=== PATIENT | female | born 1960 | race Caucasian/White ===

== ENCOUNTER 2017-02-25 06:28 | Day surgery (SDC) | payer OTHER ==
[2017-02-20 08:36] VITALS: BMI 17.7
[~2017-02-25 06:28] MED LIST: DEXAMETHASONE SOD PHOSPHATE 10 MG/ML 1 ML VIAL IV ONE; HYDROmorphone 1 MG/ML 1 ML SYRINGE IVP PRN; LACTATED RINGERS 1,000 ML IV SCH; LIDOCAINE 1% 20 ML VIAL (10MG/ML) FOR IV START INTRADERMA PRN; MIDAZOLAM 2 MG/2 ML VIAL IV PRN; ONDANSETRON 4 MG/2 ML VIAL IVP ONE; Pre Op ABX Message 1 EACH MISC MISCELLANE ONE; SCOPOLAMINE 1.5MG/72HR PATCH TRANSDERM ONE
[2017-02-25] MEDS ORDERED: LIDOCAINE 1% INJ 10MG/ML (20 ML MDV) ONE (07:37)
[2017-02-25] MEDS ORDERED: PROPOFOL 10 MG/ML 20 ML VIAL IV ONE (07:37)
[2017-02-25] MEDS ORDERED: MIDAZOLAM 2 MG/2 ML VIAL ONE (07:37)
[2017-02-25] MEDS ORDERED: fentaNYL (PF) 50 MCG/ML 2 ML AMP ONE (07:37)
[2017-02-25] MEDS ORDERED: GLYCOPYRROLATE 0.2 MG/ML 2 ML VIAL ONE (07:37)
[2017-02-25] MEDS ORDERED: KETOROLAC 30 MG/ML 1 ML VIAL ONE (07:37)
--- NOTE | 2017-02-25 07:37 | P.HPOB ---
History of Present Illness H&P Date: 02/25/17 Chief Complaint: Vulvar lesions Lo is a 56-year-old female with at least 2 vulvar lesions one at 5:00 and 1 7:00. One and 5:00. 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 She is scheduled for wide local excision of same. Risks/benefits/alternatives were discussed the patient in detail and all questions are answered for her prior to proceeding to the operative room. Patient does have this history of SALVADOR 2-3 on biopsies approximately 3 years ago. However at that time she moved to [place] and had no other treatments for follow-up until she returns to [place] this year. On physical exam vital signs are stable and afebrile. Heart regular, lungs clear, extremities without pain. Pelvic exams as above. Pap smear was unremarkable. Assessment of our lesions. Plan biopsy/wide local excision of same. Past Medical History Past Medical History: Hypertension History of Any Multi-Drug Resistant Organisms: None Reported Past Surgical History: Breast Surgery, Tubal Ligation Additional Past Surgical History / Comment(s): breast biopsy, excision vulva lesion Past Anesthesia/Blood Transfusion Reactions: No Reported Reaction Smoking Status: Current every day smoker - Past Family History Mother Family Medical History: No Reported History Medications and Allergies Home Medications Medication Instructions Recorded Confirmed Type Alendronate Sodium [Fosamax] 70 mg PO WEEKLY 04/13/14 02/25/17 History Atenolol [Tenormin] 50 mg PO DAILY 04/13/14 02/25/17 History Multivit with Calcium,Iron,Min 1 each PO DAILY 04/13/14 02/20/17 History [Women's Daily Multivitamin] Ferrous Sulfate [Feosol] 325 mg PO MOFR 02/20/17 02/20/17 History Allergies Allergy/AdvReac Type Severity Reaction Status Date / Time lisinopril Allergy facial Verified 02/25/17 06:38 swelling Exam Osteopathic Statement: *. No significant issues noted on an osteopathic structural exam other than those noted in the History and Physical/Consult. - Vital Signs Vital signs: Vital Signs Temp Pulse Resp BP Pulse Ox 02/25/17 06:37 98.0 F 64 16 135/67 100 - OBG Physical Exam Breast: both: normal (no masses) Abdomen: bowel sounds normal, no diffuse tenderness, no bruit present, no guarding noted, no hepatomegaly, no splenomegaly, no mass Vulva: right: condyloma, left: pigmented lesion Vagina: normal moisture, no discharge Cervix: no lesion, no discharge Uterus: normal size, normal contour Adnexa: both: normal
[2017-02-25] MEDS ORDERED: BUPIVACAINE (PF) 0.25% 30 ML VIAL SQ ONE (07:49)
--- NOTE | 2017-02-25 08:02 | P.OP ---
Date of Procedure: 02/25/17 Preoperative Diagnosis: Vulvar lesions Postoperative Diagnosis: Same Procedure(s) Performed: Wide local excision of lesions at 7:00 and 5:00 Implants: Anesthesia: MOMO Surgeon: Mickey Stiles Estimated Blood Loss (ml): 10 Pathology: other (Lesions sent) Condition: stable Disposition: same day Indications for Procedure: Operative Findings: 2 lesions at 5 and 7:00 were identified both were excised fully Description of Procedure: Patient was placed in a dorsal following position following adequate anesthesia and prep. Initially quarter percent Marcaine without epinephrine was used to undermine the tissues and help with pain control. Using a 15 blade an elliptical incision was made around first the lesion at 7:00 and then around the lesion at 5:00 in total the first biopsy was approximately 2 cm x 1 cm and the second was approximately 3 cm x 0.5 cm. Once these lesions were excised were sent to pathology for evaluation. 3-0 Vicryl was then used in interrupted fashion to reapproximate both incisions. Once hemostasis was obtained instrument were removed sponge, lap, needle counts were all correct 2 and patient was taken to the recovery room in stable and satisfactory condition. Plan - Discharge Summary New Discharge Prescriptions: New Acetaminophen-Codeine 300-30mg [Tylenol #3] 1 tab PO Q4H PRN #30 tablet PRN Reason: Pain No Action Atenolol [Tenormin] 50 mg PO DAILY Multivit with Calcium,Iron,Min [Women's Daily Multivitamin] 1 each PO DAILY Alendronate Sodium [Fosamax] 70 mg PO WEEKLY Ferrous Sulfate [Feosol] 325 mg PO MOFR Discharge Medication List Alendronate Sodium [Fosamax] 70 mg PO WEEKLY 04/13/14 [History] Atenolol [Tenormin] 50 mg PO DAILY 04/13/14 [History] Multivit with Calcium,Iron,Min [Women's Daily Multivitamin] 1 each PO DAILY 08/15 [History] Ferrous Sulfate [Feosol] 325 mg PO MOFR 02/20/17 [History] Acetaminophen-Codeine 300-30mg [Tylenol #3] 1 tab PO Q4H PRN #30 tablet [Rx] Follow up Appointment(s)/Referral(s): Mickey Stiles DO [Doctor of Osteopathic Medicine] - 2 Weeks Activity/Diet/Wound Care/Special Instructions: No heavy lifting, limit strength stairs and driving today. Pelvic rest as this heals. If any high temperatures, heavy bleeding, or severe pain call my office Discharge Disposition: HOME SELF-CARE
[2017-02-25 08:14] VITALS: TEMP 97.2
[2017-02-25 08:55] VITALS: RESP 18
[2017-02-25 09:11] VITALS: PULSE 55
[2017-02-25 09:27] VITALS: BP 123/85
== END 2017-02-25 09:50 | disposition home or self-care (01) ==
LOC: OR 06:28
PROVIDERS: ATTEND Obstetrics & Gynecology
DX: D07.1 Carcinoma in situ of vulva (principal); I10 Essential (primary) hypertension; F17.200 Nicotine dependence, unspecified, uncomplicated; Z79.899 Other long term (current) drug therapy; Z88.8 Allergy status to other drugs, medicaments and biological substances
CPT/HCPCS: 11422; 11426; 88305; J2250; J1100; J2405; J2001; J3010; J1885; J2704

== ENCOUNTER → 2017-07-15 | Outpatient (CLI) | payer OTHER ==
--- NOTE | 2017-07-16 07:28 | MM ---
Reason for exam: screening (asymptomatic). Last mammogram was performed 1 year and 3 months ago. History: Patient is postmenopausal. Benign US left guided mammotome of the left breast, February 04, 2008. Took hormonal contraceptives for 15 years beginning at age 18. Physical Findings: A clinical breast exam by your physician is recommended on an annual basis and results should be correlated with mammographic findings. MG Screening Mammo w CAD Bilateral CC and MLO view(s) were taken. Prior study comparison: March 30, 2016, bilateral MG screening mammo w CAD. December 16, 2013, bilateral digital screening mammo w/CAD. The breast tissue is extremely dense which could obscure a lesion on mammography. Previous mammotome biopsy in the left breast. No significant changes when compared with prior studies. ASSESSMENT: Negative, BI-RAD 1 RECOMMENDATION: Routine screening mammogram of both breasts in 1 year.
== END | disposition home or self-care (01) ==
LOC: RADMAMWWP 07:00
PROVIDERS: ATTEND Family Medicine
DX: Z12.31 Encounter for screening mammogram for malignant neoplasm of breast (principal)

== ENCOUNTER → 2018-07-22 | Outpatient (CLI) | payer OTHER ==
--- NOTE | 2018-07-28 09:39 | MM ---
Reason for exam: screening (asymptomatic). Last mammogram was performed 1 year ago. History: Patient is postmenopausal. Benign US left guided mammotome of the left breast, February 04, 2008. Took hormonal contraceptives for 15 years beginning at age 18. Physical Findings: A clinical breast exam by your physician is recommended on an annual basis and results should be correlated with mammographic findings. MG Screening Mammo w CAD Bilateral CC and MLO view(s) were taken. Prior study comparison: July 15, 2017, bilateral MG screening mammo w CAD. March 30, 2016, bilateral MG screening mammo w CAD. The breast tissue is extremely dense which could obscure a lesion on mammography. Previous mammotome biopsy in the left breast. No significant changes when compared with prior studies. ASSESSMENT: Benign, BI-RAD 2 RECOMMENDATION: Routine screening mammogram of both breasts in 1 year.
== END | disposition home or self-care (01) ==
LOC: RADMAMWWP 06:56
PROVIDERS: ATTEND Obstetrics & Gynecology
DX: Z12.31 Encounter for screening mammogram for malignant neoplasm of breast (principal); M89.9 Disorder of bone, unspecified
CPT/HCPCS: 77067

== ENCOUNTER → 2019-03-16 | Outpatient (CLI) | payer OTHER ==
--- NOTE | 2019-03-16 09:38 | BD ---
EXAMINATION TYPE: Axial Bone Density DATE OF EXAM: 03/16/2019 COMPARISON: 2016 CLINICAL HISTORY: Postmenopausal female Height: 66 inches Weight: 106 FRAX RISK QUESTIONS: Alcohol (3 or more units per day): no Family History (Parent hip fracture): no Glucocorticoids (More than 3mos): no (Ex: prednisone, prednisolone, methylprednisolone, dexamethasone, and hydrocortisone). History of Fracture in Adulthood: yes Secondary Osteoporosis: 1. Type 1 Diabetes: no 2. Hyperthyroidism: no 3. Menopause before 45: no 4. Malnutrition: no 5. Chronic liver disease: no Rheumatoid Arthritis: no Current Tobacco Use: yes RISK FACTORS HISTORY OF: Family History of Osteoporosis: no Active: yes Diet low in dairy products/other sources of calcium: no Postmenopausal woman: yes Take estrogen and/or progesterone medications: not now How long: about 15 years Lost more than 2 inches in height since high school: no Frequent falls: no Poor Health: no Hyperparathyroidism: no Adrenal Insufficiency: no MEDICATIONS: Prednisone or other steroids: no Thyroid Medications: no Osteoporosis Medications: yes Which medication: Fosamax-generic How Long: about 5 years Additional Medications: calcium with Vitamin D & Multi-vitamin, blood pressure med Additional History: EXAM MEASUREMENTS: Bone mineral densitometry was performed using the [employer] System. Bone mineral density as measured about the Lumbar spine is: ----- L1-L4(G/cm2): 1.172 T Score Values are as follows: ----- L2: 0.5 ----- L3: -0.9 ----- L4: -0.2 ----- L1-L4: -0.1 Bone mineral density has: Increased 0.9% since study of: 03/21/2016 Bone mineral density about the R hip (g/cm2): 0.717 Bone mineral density about the L hip (g/cm2): 0.810 T Score values are as follows: -----R Neck: -2.3 -----L Neck: -1.6 -----R Total: -1.9 -----L Total: -1.3 Bone mineral density has: Decreased -4.4% since study of: 03/21/2016 IMPRESSION: Osteopenia (T Score between -2.5 and -1). There is slightly increased risk of fracture and the patient may be considered for treatment. Re-Screen 2-5 years. NOTE: T-SCORE=SD OF THE YOUNG ADULT MEAN.
== END | disposition home or self-care (01) ==
LOC: RADBDWWP 07:10
PROVIDERS: ATTEND Family Medicine
DX: M85.88 Other specified disorders of bone density and structure, other site (principal)
CPT/HCPCS: 77080

== ENCOUNTER → 2019-09-16 | Outpatient (CLI) | payer OTHER ==
--- NOTE | 2019-09-17 13:44 | MM ---
Reason for exam: screening (asymptomatic). Last mammogram was performed 1 year and 2 months ago. History: Patient is postmenopausal and has history of other cancer at age 58. Benign US left guided mammotome of the left breast, February 04, 2008. Took hormonal contraceptives for 15 years beginning at age 18. Physical Findings: A clinical breast exam by your physician is recommended on an annual basis and results should be correlated with mammographic findings. MG Screening Mammo w CAD Bilateral CC and MLO view(s) were taken. Prior study comparison: July 22, 2018, bilateral MG screening mammo w CAD. July 15, 2017, bilateral MG screening mammo w CAD. The breast tissue is heterogeneously dense. This may lower the sensitivity of mammography. Previous mammotome biopsy in the left breast. No significant changes when compared with prior studies. ASSESSMENT: Negative, BI-RAD 1 RECOMMENDATION: Routine screening mammogram of both breasts in 1 year.
== END ==
LOC: RADMAMWWP 06:58
PROVIDERS: ATTEND Family Medicine
DX: Z12.31 Encounter for screening mammogram for malignant neoplasm of breast (principal)
CPT/HCPCS: 77067

== ENCOUNTER → 2020-11-18 | Outpatient (CLI) | payer OTHER ==
--- NOTE | 2020-11-21 12:23 | MM ---
Reason for exam: screening (asymptomatic). Last mammogram was performed 1 year and 2 months ago. History: Patient is postmenopausal and has history of other cancer at age 58. Benign US left guided mammotome of the left breast, February 04, 2008. Took hormonal contraceptives for 15 years beginning at age 18. Physical Findings: A clinical breast exam by your physician is recommended on an annual basis and results should be correlated with mammographic findings. MG Screening Mammo w CAD Bilateral CC and MLO view(s) were taken. Prior study comparison: September 16, 2019, bilateral MG screening mammo w CAD. July 22, 2018, bilateral MG screening mammo w CAD. The breast tissue is heterogeneously dense. This may lower the sensitivity of mammography. Previous mammotome biopsy in the left breast. No significant changes when compared with prior studies. ASSESSMENT: Benign, BI-RAD 2 RECOMMENDATION: Routine screening mammogram of both breasts in 1 year.
== END | disposition home or self-care (01) ==
LOC: RADMAMWWP 07:17
PROVIDERS: ATTEND Family Medicine
DX: Z12.31 Encounter for screening mammogram for malignant neoplasm of breast (principal); Z78.0 Asymptomatic menopausal state
CPT/HCPCS: 77067

== ENCOUNTER → 2021-03-21 | Outpatient (CLI) | payer OTHER ==
--- NOTE | 2021-03-22 09:26 | BD ---
EXAMINATION TYPE: Axial Bone Density DATE OF EXAM: 03/21/2021 COMPARISON: 03/16/2019 CLINICAL HISTORY: Osteoporosis Height: 66 Weight: 108.0 FRAX RISK QUESTIONS: Alcohol (3 or more units per day): yes Family History (Parent hip fracture): no Glucocorticoids (More than 3mos): no (Ex: prednisone, prednisolone, methylprednisolone, dexamethasone, and hydrocortisone). History of Fracture in Adulthood: yes Secondary Osteoporosis: 1. Type 1 Diabetes: no 2. Hyperthyroidism: no 3. Menopause before 45: no 4. Malnutrition: no 5. Chronic liver disease: no Rheumatoid Arthritis: no Current Tobacco Use: yes RISK FACTORS HISTORY OF: Surgery to Spine/Hip(right/left)/Wrist (right/left): no Family History of Osteoporosis: no Active: yes Diet low in dairy products/other sources of calcium: yes Postmenopausal woman: age 51 Lost more than 2 inches in height since high school: no MEDICATIONS: blood pressure meds Osteoporosis Medications: yes/alendronate How Lon years Additional Medications: Additional History: EXAM MEASUREMENTS: Bone mineral densitometry was performed using the [employer] System. Bone mineral density as measured about the Lumbar spine is: ----- L1-L4(G/cm2): 1.223 T Score Values are as follows: ----- L2: 1.0 ----- L3: -0.7 ----- L4: 0.4 ----- L1-L4: 0.4 Bone mineral density has: increased 4.7 % since study of: 03.16.2019 Bone mineral density about the R hip (g/cm2): 0.695 Bone mineral density about the L hip (g/cm2): 0.840 T Score values are as follows: -----R Neck: -2.5 -----L Neck: -1.4 -----R Total: -1.8 -----L Total: -1.2 Bone mineral density has: increased 1.1 % since study of: 03.16.2019 IMPRESSION: Osteopenia. NOTE: T-SCORE=SD OF THE YOUNG ADULT MEAN.
== END | disposition home or self-care (01) ==
LOC: RADBDWWP 16:17
PROVIDERS: ATTEND Family Medicine
DX: M85.80 Other specified disorders of bone density and structure, unspecified site (principal)
CPT/HCPCS: 77080

== ENCOUNTER → 2021-12-04 | Outpatient (CLI) | payer OTHER ==
--- NOTE | 2021-12-05 11:55 | MM ---
Reason for exam: screening (asymptomatic). Last mammogram was performed 1 year and 1 month ago. History: Patient is postmenopausal and has history of other cancer at age 58. Benign US left guided mammotome of the left breast, February 04, 2008. Took hormonal contraceptives for 15 years beginning at age 18. Physical Findings: A clinical breast exam by your physician is recommended on an annual basis and results should be correlated with mammographic findings. MG Screening Mammo w CAD Bilateral CC and MLO view(s) were taken. Prior study comparison: November 18, 2020, bilateral MG screening mammo w CAD. September 16, 2019, bilateral MG screening mammo w CAD. The breast tissue is extremely dense which could obscure a lesion on mammography. Benign appearing calcifications in the right breast. Previous mammotome biopsy in the left breast. No significant changes when compared with prior studies. ASSESSMENT: Benign, BI-RAD 2 RECOMMENDATION: Routine screening mammogram of both breasts in 1 year.
== END | disposition home or self-care (01) ==
LOC: RADMAMWWP 07:06
PROVIDERS: ATTEND Family Medicine
DX: Z12.31 Encounter for screening mammogram for malignant neoplasm of breast (principal); Z78.0 Asymptomatic menopausal state
CPT/HCPCS: 77067

== ENCOUNTER → 2022-12-31 | Outpatient (CLI) | payer OTHER ==
--- NOTE | 2023-01-01 09:10 | MM ---
Reason for Exam: Screening (asymptomatic). Last mammogram was performed 1 year(s) and 1 month(s) ago. Patient History: Menarche at age 18. First Full-Term at age 24. Postmenopausal. Other cancer, age 58. Hormonal Contraceptives for 15 years from age 18 until age 33. 02/04/2008, Benign Core Biopsy on the left side. Risk Values: Alisha 5 year model risk: 1.4%. NCI Lifetime model risk: 6.9%. Prior Study Comparison: 09/16/2019 Bilateral Screening Mammogram, [facility]. 11/18/2020 Bilateral Screening Mammogram, [facility]. 12/04/2021 Bilateral Screening Mammogram, [facility]. Tissue Density: The breast tissue is heterogeneously dense. This may lower the sensitivity of mammography. Findings: Analyzed By CAD. Left breast biopsy clip. There is no suspicious group of microcalcifications or new suspicious mass in either breast. Overall Assessment: Negative, BI-RAD 1 Management: Screening Mammogram of both breasts in 1 year. . Patient should continue monthly self-breast exams. A clinical breast exam by your physician is recommended on an annual basis. This exam should not preclude additional follow-up of suspicious palpable abnormalities. Note on Alisha scores and lifetime risk: 1. A Alisha score greater than 3% is considered moderate risk. If this is the case, consider specialist referral to assess eligibility for a risk reducing agent. 2. If overall lifetime risk for the development of breast cancer is 20% or higher, the patient may qualify for future screening with alternating mammogram and breast MRI. Electronically signed and approved by: Gasper Byrne DO
== END | disposition home or self-care (01) ==
LOC: RADMAMWWP 07:02
PROVIDERS: ATTEND Family Medicine
DX: Z12.31 Encounter for screening mammogram for malignant neoplasm of breast (principal); Z78.0 Asymptomatic menopausal state; Z81.0 Family history of intellectual disabilities
CPT/HCPCS: 77067

== ENCOUNTER → 2024-03-02 | Outpatient (CLI) | payer OTHER ==
--- NOTE | 2024-03-04 08:24 | MM ---
Reason for Exam: Screening (asymptomatic). Last mammogram was performed 1 year(s) and 2 month(s) ago. Patient History: Menarche at age 18. First Full-Term at age 24. Postmenopausal. Other cancer, age 58. Hormonal Contraceptives for 15 years from age 18 until age 33. 02/04/2008, Benign Core Biopsy on the left side. Risk Values: Alisha 5 year model risk: 1.5%. NCI Lifetime model risk: 6.7%. Prior Study Comparison: 11/18/2020 Bilateral Screening Mammogram, [facility]. 12/04/2021 Bilateral Screening Mammogram, [facility]. 12/31/2022 Bilateral MG screening mammo w CAD, [facility]. Tissue Density: The breasts are extremely dense, which lowers the sensitivity of mammography. Findings: Analyzed By CAD. There is no suspicious group of microcalcifications or new suspicious mass in either breast. Benign-appearing calcifications noted. Stable surgical clip left breast. Overall Assessment: Benign, BI-RAD 2 Management: Screening Mammogram of both breasts in 1 year. . Patient should continue monthly self-breast exams. A clinical breast exam by your physician is recommended on an annual basis. This exam should not preclude additional follow-up of suspicious palpable abnormalities. Note on Alisha scores and lifetime risk: 1. A Alisha score greater than 3% is considered moderate risk. If this is the case, consider specialist referral to assess eligibility for a risk reducing agent. 2. If overall lifetime risk for the development of breast cancer is 20% or higher, the patient may qualify for future screening with alternating mammogram and breast MRI. Electronically signed and approved by: Silvio Kim M.D. Radiologis
== END | disposition home or self-care (01) ==
LOC: RADMAMWWP 07:01
PROVIDERS: ATTEND Family Medicine
DX: Z12.31 Encounter for screening mammogram for malignant neoplasm of breast (principal); Z78.0 Asymptomatic menopausal state
CPT/HCPCS: 77063; 77067

== ENCOUNTER 2024-05-15 13:34 | Observation (INO) | payer OTHER ==
[2024-05-15 14:25] LABS: Basophils % (A) 0 %; Eosinophils % (A) 1 %; HCT 32.2 % (34.0-46.0); HGB 11.3 gm/dL (11.4-16.0); Lymphocytes # (A) 0.8 k/uL (1.0-4.8); Lymphocytes % (A) 18 %; MCH 32.7 pg (25.0-35.0); MCHC 35.1 g/dL (31.0-37.0); MCV 93.1 fL (80.0-100.0); Mean Platelet Volume 8.2; Monocytes # (A) 0.4 k/uL (0-1.0); Monocytes % (A) 8 %; Neutrophils # (A) 3.2 k/uL (1.3-7.7); Neutrophils % (A) 70 %; Platelet Count 217 k/uL (150-450); RBC 3.46 m/uL (3.80-5.40); RDW 13.3 % (11.5-15.5); WBC 4.5 k/uL (3.8-10.6)
[2024-05-15 14:35] LABS: INR 1.1 (<1.2); Partial Thromboplastin Time 24.9 sec (22.0-30.0); Prothrombin Time 11.7 sec (10.0-12.5)
--- NOTE | 2024-05-15 14:50 | ED ---
General Adult HPI - General Source: patient, RN notes reviewed, old records reviewed Mode of arrival: ambulatory Limitations: no limitations <Jeffery Awad - Last Filed: 05/15/24 14:45> - General Source: patient, RN notes reviewed, old records reviewed Mode of arrival: ambulatory Limitations: no limitations - History of Present Illness -: hour(s) Location: chest Severity scale (1-10): 7 Quality: aching Consistency: constant Improves with: none Worsens with: none Associated Symptoms: denies other symptoms <Liborio Matos - Last Filed: 05/15/24 16:38> - General Chief complaint: Chest Pain Stated complaint: Chest pain Time Seen by Provider: 05/15/24 14:00 - History of Present Illness Initial comments: Patient is a 63-year-old female presents emergency department complaint of chest pain. Has been ongoing since 5 AM this morning. States it is left-sided. No radiation. No shortness of breath. No nausea or vomiting. No diaphoresis. No cardiac history. Does have a history of hypertension. Denies any significant shortness of breath with it. Denies any recent long distance travel. Still has the pain. Does not seem to be worse with movement. Presents for further evaluation at this time. (Jeffery Awad) This is a 63 female to ER for evaluation of chest pain chest pain start this morning and progressed left-sided chest pain patient does have history of smoking and blood pressure no prior history of stress test and persistent pain here in the ER (Liborio Matos) - Related Data Home Medications Medication Instructions Recorded Confirmed Alendronate Sodium [Fosamax] 70 mg PO GERBER 04/13/14 05/15/24 Multivit with Calcium,Iron,Min 1 tab PO DAILY 04/13/14 05/15/24 [Women's Daily Multivitamin] atenoloL [Tenormin] 50 mg PO DAILY@1100 04/13/14 05/15/24 Ferrous Sulfate [Feosol] 325 mg PO GERBER 02/20/17 05/15/24 Biotin(Unknown Dose) 1 tab PO DAILY 05/15/24 05/15/24 Calcium Carbonate [Calcium] 600 mg PO MOWEFR 05/15/24 05/15/24 Fish Oil(Unknown Dose) 1 cap PO TUTH 05/15/24 05/15/24 Losartan Potassium 100 mg PO DAILY 05/15/24 05/15/24 amLODIPine [Norvasc] 5 mg PO HS 05/15/24 05/15/24 Allergies Allergy/AdvReac Type Severity Reaction Status Date / Time lisinopril Allergy Anaphylaxis/Facial Verified 05/15/24 16:18 Swelling/Lip Swelling Review of Systems ROS Other: All systems not noted in ROS Statement are negative. <Jeffery Awad - Last Filed: 05/15/24 14:45> ROS Other: All systems not noted in ROS Statement are negative. <Liborio Matos - Last Filed: 05/15/24 16:38> ROS Statement: Those systems with pertinent positive or pertinent negative responses have been documented in the HPI. Review of Systems: CONST: Denies fever EYES: Denies blurry vision ENT: Denies nasal congestion C/V: Endorses chest pain RESP: Denies shortness of breath GI: Denies abdominal pain : Denies dysuria SKIN: Denies rash. MSK: Denies joint pain. NEURO: Denies headache (Jeffery Awad) Past Medical History Past Medical History: Hypertension History of Any Multi-Drug Resistant Organisms: None Reported Past Surgical History: Breast Surgery, Tubal Ligation Additional Past Surgical History / Comment(s): breast biopsy, excision vulva lesion Past Anesthesia/Blood Transfusion Reactions: No Reported Reaction Past Psychological History: No Psychological Hx Reported Past Alcohol Use History: Occasional Past Drug Use History: None Reported - Past Family History Mother Family Medical History: No Reported History <Jeffery Awad - Last Filed: 05/15/24 14:45> General Exam Limitations: no limitations <Jeffery Awad - Last Filed: 05/15/24 14:45> General appearance: alert, in no apparent distress Head exam: Present: atraumatic, normocephalic, normal inspection Eye exam: Present: normal appearance, PERRL, EOMI. Absent: scleral icterus, conjunctival injection, periorbital swelling ENT exam: Present: normal exam, mucous membranes moist Neck exam: Present: normal inspection. Absent: tenderness, meningismus, lymphadenopathy Respiratory exam: Present: normal lung sounds bilaterally. Absent: respiratory distress, wheezes, rales, rhonchi, stridor Cardiovascular Exam: Present: regular rate, normal rhythm, normal heart sounds. Absent: systolic murmur, diastolic murmur, rubs, gallop, clicks GI/Abdominal exam: Present: soft, normal bowel sounds. Absent: distended, tenderness, guarding, rebound, rigid Extremities exam: Present: normal inspection, full ROM, normal capillary refill. Absent: tenderness, pedal edema, joint swelling, calf tenderness Back exam: Present: normal inspection Neurological exam: Present: alert, oriented X3, CN II-XII intact Psychiatric exam: Present: normal affect, normal mood Skin exam: Present: warm, dry, intact, normal color. Absent: rash <Liborio Matos - Last Filed: 05/15/24 16:38> - General Exam Comments Initial Comments: General: Appears in no acute distress. HEAD: Normal with no signs of head trauma. EYES: PERRLA, EOMI, conjunctiva normal, no discharge. ENT: Hearing grossly intact, normal oropharynx. RESPIRATORY: Clear breath sounds bilaterally. No wheezes, rales, or rhonchi. C/V: Regular rate and rhythm. S1 and S2 auscultated, no edema, peripheral pulses 2+ and intact throughout. Chest pain not reproducible on palpation. ABD: Abd is soft, nontender, nondistended EXT: Normal range of motion, no obvious deformity SKIN: No rashes or lesions observed on exposed skin. NEURO: Alert and oriented x 4. (Jeffery Awad) Course <Liborio Matos - Last Filed: 05/15/24 16:38> Vital Signs 05/15/24 05/15/24 14:18 16:16 Temperature 98 F Pulse Rate 55 L Pulse Rate [ 63 [employer] ] Respiratory 16 Rate Blood Pressure 155/83 O2 Sat by Pulse 99 Oximetry - Reevaluation(s) Reevaluation #1: 05/15/24 16:37 Medical records reviewed (Liborio Matos) Reevaluation #2: 05/15/24 16:37 Patient still with chest pain here in the ER (Liborio Matos) - Consultations Consultation #1: Spoke with sound who will observe this patient (Liborio Matos) Medical Decision Making - Lab Data Result diagrams: 05/15/24 14:02 - EKG Data -: EKG Interpreted by Me <Jeffery Awad - Last Filed: 05/15/24 14:45> - Lab Data Result diagrams: 05/15/24 14:02 05/15/24 14:02 - EKG Data -: EKG Interpreted by Me - Radiology Data Radiology results: report reviewed (Chest x-ray is negative for acute disease), image reviewed <Liborio Matos - Last Filed: 05/15/24 16:38> - Medical Decision Making Was pt. sent in by a medical professional or institution (, PA, ENTREPRENEUR, urgent care, hospital, or detention...) When possible be specific @ -No Did you speak to anyone other than the patient for history (EMS, parent, family, police, friend...)? What history was obtained from this source @ -No Did you review nursing and triage notes (agree or disagree)? Why? @ -I reviewed and agree with nursing and triage notes Were old charts reviewed (outside hosp., previous admission, EMS record, old EKG, old radiological studies, urgent care reports/EKG's, detention records)? Report findings @ -Reviewed old chart from April 2014 specifically the EKG when compared with today shows no obvious acute changes. Differential Diagnosis (chest pain, altered mental status, abdominal pain women, abdominal pain men, vaginal bleeding, weakness, fever, dyspnea, syncope, headache, dizziness, GI bleed, back pain, seizure, CVA, palpatations, mental health, musculoskeletal)? @ -Differential Chest Pain: Stable Angina, Unstable Angina, STEMI, NSTEMI Aortic Dissection, Pneumothorax, Musculoskeletal, Esophageal Spasm GERD, Cholecystitis, Pancreatitis, Zoster, this is not meant to be an all-inclusive list. EKG interpreted by me (3pts min.). @ -As above X-rays interpreted by me (1pt min.). @ -Pending CT interpreted by me (1pt min.). @ -None done U/S interpreted by me (1pt. min.). @ -None done What testing was considered but not performed or refused? (CT, X-rays, U/S, labs)? Why? @ -None What meds were considered but not given or refused? Why? @ -None Did you discuss the management of the patient with other professionals (professionals i.e. , PA, ENTREPRENEUR, lab, RT, psych nurse, secondary social studies teacher, boilermaker, teacher, product safety officer, pillowcase folder)? Give summary @ -No Was smoking cessation discussed for >3mins.? @ -No Was critical care preformed (if so, how long)? @ -No Were there social determinants of health that impacted care today? How? (Homelessness, low income, unemployed, alcoholism, drug addiction, transportation, low edu. Level, literacy, decrease access to med. care, [facility], rehab)? @ -No Was there de-escalation of care discussed even if they declined (Discuss DNR or withdrawal of care, Hospice)? DNR status @ -No What co-morbidities impacted this encounter? (DM, HTN, Smoking, COPD, CAD, Cancer, CVA, ARF, Chemo, Hep., AIDS, mental health diagnosis, sleep apnea, morbid obesity)? @ -None Was patient admitted / discharged? Hospital course, mention meds given and route, prescriptions, significant lab abnormalities, going to OR and other pertinent info. @ -Patient presents for chest pain. Vitals within acceptable limits. EKG shows no signs of acute ischemia. We will obtain cardiopulmonary workup. Vitals are within acceptable limits. She will be given an aspirin. Patient is currently in the waiting room and will be worked up in the waiting room until a room becomes available. Patient in agreement this plan. Patient pending workup. Signed out to Dr. Matos Pending results. Undiagnosed new problem with uncertain prognosis? @ -No Drug Therapy requiring intensive monitoring for toxicity (Heparin, Nitro, Insulin, Cardizem)? @ -No Were any procedures done? @ -No (Jeffery Awad) 63 female will be admitted for chest pain observation (Liborio Matos) - Lab Data Lab Results 05/15/24 05/15/24 05/15/24 Range/Units 14:02 14:02 14:02 WBC 4.5 (3.8-10.6) k/uL RBC 3.46 L (3.80-5.40) m/uL Hgb 11.3 L (11.4-16.0) gm/dL Hct 32.2 L (34.0-46.0) % MCV 93.1 (80.0-100.0) fL MCH 32.7 (25.0-35.0) pg MCHC 35.1 (31.0-37.0) g/dL RDW 13.3 (11.5-15.5) % Plt Count 217 (150-450) k/uL MPV 8.2 Neutrophils % 70 % Lymphocytes % 18 % Monocytes % 8 % Eosinophils % 1 % Basophils % 0 % Neutrophils # 3.2 (1.3-7.7) k/uL Lymphocytes # 0.8 L (1.0-4.8) k/uL Monocytes # 0.4 (0-1.0) k/uL Eosinophils # 0.0 (0-0.7) k/uL Basophils # 0.0 (0-0.2) k/uL PT 11.7 (10.0-12.5) sec INR 1.1 (<1.2) APTT 24.9 (22.0-30.0) sec Sodium 126 L (137-145) mmol/L Potassium 4.0 (3.5-5.1) mmol/L Chloride 91 L (98-107) mmol/L Carbon Dioxide 23 (22-30) mmol/L Anion Gap 12 mmol/L BUN 19 H (7-17) mg/dL Creatinine 0.89 (0.52-1.04) mg/dL Est GFR (CKD-EPI)AfAm 80 (>60 ml/min/1.73 sqM) Est GFR (CKD-EPI)NonAf 70 (>60 ml/min/1.73 sqM) Glucose 116 H (74-99) mg/dL Calcium 10.1 (8.4-10.2) mg/dL Magnesium 1.6 (1.6-2.3) mg/dL Total Bilirubin 0.6 (0.2-1.3) mg/dL AST 30 (14-36) U/L ALT 22 (4-34) U/L Alkaline Phosphatase 40 (38-126) U/L Troponin I (0.000-0.034) ng/mL NT-Pro-B Natriuret Pep 626 pg/mL Total Protein 6.6 (6.3-8.2) g/dL Albumin 4.7 (3.5-5.0) g/dL Lipase 83 (23-300) U/L 05/15/24 Range/Units 14:02 WBC (3.8-10.6) k/uL RBC (3.80-5.40) m/uL Hgb (11.4-16.0) gm/dL Hct (34.0-46.0) % MCV (80.0-100.0) fL MCH (25.0-35.0) pg MCHC (31.0-37.0) g/dL RDW (11.5-15.5) % Plt Count (150-450) k/uL MPV Neutrophils % % Lymphocytes % % Monocytes % % Eosinophils % % Basophils % % Neutrophils # (1.3-7.7) k/uL Lymphocytes # (1.0-4.8) k/uL Monocytes # (0-1.0) k/uL Eosinophils # (0-0.7) k/uL Basophils # (0-0.2) k/uL PT (10.0-12.5) sec INR (<1.2) APTT (22.0-30.0) sec Sodium (137-145) mmol/L Potassium (3.5-5.1) mmol/L Chloride (98-107) mmol/L Carbon Dioxide (22-30) mmol/L Anion Gap mmol/L BUN (7-17) mg/dL Creatinine (0.52-1.04) mg/dL Est GFR (CKD-EPI)AfAm (>60 ml/min/1.73 sqM) Est GFR (CKD-EPI)NonAf (>60 ml/min/1.73 sqM) Glucose (74-99) mg/dL Calcium (8.4-10.2) mg/dL Magnesium (1.6-2.3) mg/dL Total Bilirubin (0.2-1.3) mg/dL AST (14-36) U/L ALT (4-34) U/L Alkaline Phosphatase (38-126) U/L Troponin I <0.012 (0.000-0.034) ng/mL NT-Pro-B Natriuret Pep pg/mL Total Protein (6.3-8.2) g/dL Albumin (3.5-5.0) g/dL Lipase (23-300) U/L - EKG Data EKG Comments: 12-lead Electrocardiogram Interpretation Note EKG was reviewed and interpreted by myself. 12-lead ECG performed at 1402 is interpreted by me as revealing sinus bradycardia at a rate of 58 beats per minute. [place] is normal. OK interval is 148 ms, QRS duration is 96 ms, QTc is 385 ms.. There were no ST or T wave abnormalities to suggest myocardial ischemia or injury. Patient has an isolated T wave inversion in V2. R wave progression across the precordium was satisfactory. By my interpretation this EKG is non-diagnostic for acute ischemia. Compared with EKG from April 2014 with no obvious acute changes. (Jeffery Awad) Disposition <Jeffery Awad - Last Filed: 05/15/24 14:45> Is patient prescribed a controlled substance at d/c from ED?: No Time of Disposition: 16:30 <Liborio Matos - Last Filed: 05/15/24 16:38> Clinical Impression: Chest pain Disposition: ADMITTED IP TO THIS HOSP Condition: Fair Instructions (If sedation given, give patient instructions): Chest Pain (ED) Referrals: Liborio Smith MD [Primary Care Provider] - 1-2 days
[2024-05-15 14:52] LABS: ALT 22 U/L (4-34); AST 30 U/L (14-36); African American GFR (CKD) 80 (>60 ml/min/1.73 sqM); Albumin 4.7 g/dL (3.5-5.0); Alkaline Phosphatase 40 U/L (38-126); Anion Gap 12 mmol/L; Blood Urea Nitrogen 19 mg/dL (7-17); Calcium 10.1 mg/dL (8.4-10.2); Carbon Dioxide 23 mmol/L (22-30); Chloride 91 mmol/L (98-107); Glucose 116 mg/dL (74-99); Lipase 83 U/L (23-300); Magnesium 1.6 mg/dL (1.6-2.3); Non-African American GFR(CKD) 70 (>60 ml/min/1.73 sqM); Sodium 126 mmol/L (137-145); Total Bilirubin 0.6 mg/dL (0.2-1.3); Total Protein 6.6 g/dL (6.3-8.2)
[2024-05-15 15:01] LABS: NT-Pro-B-Type Natriuretic Pept 626 pg/mL
[2024-05-15] MEDS: ASPIRIN 81 MG PO STA (16:12)
--- NOTE | 2024-05-15 16:16 | XR ---
EXAMINATION TYPE: XR chest 2V DATE OF EXAM: 05/15/2024 COMPARISON: NONE HISTORY: Chest pain TECHNIQUE: Frontal and lateral views of the chest are obtained. FINDINGS: There is no focal air space opacity, pleural effusion, or pneumothorax seen. The cardiac silhouette size is within normal limits. The osseous structures are intact. IMPRESSION: No acute cardiopulmonary process. [facility] Workstation: ALEX 05/15/2024 4:13 PM
[2024-05-15] MEDS ORDERED: NALOXONE 0.4 MG/ML 1 ML VIAL IV PRN ×2 (16:36→17:43)
[2024-05-15] MEDS ORDERED: MORPHINE SULFATE 4 MG/ML SYRINGE IV PRN (16:36)
[2024-05-15] MEDS ORDERED: ONDANSETRON 4 MG/2 ML VIAL IVP PRN (16:36)
[2024-05-15] MEDS: SODIUM CHLORIDE 0.9% 1,000 ML IV STA (16:42)
--- NOTE | 2024-05-15 17:42 | P.HPIM ---
History of Present Illness H&P Date: 05/15/24 Chief Complaint: chest pain 63-year-old female presents to the emergency department with chest pain, which started since waking up today. States it is left-sided. No radiation. Feels like ''annoying'' and ''pokes'', better with laying down. 7/10 in intensity. No shortness of breath. No nausea or vomiting. No diaphoresis. No cardiac history. Does have a history of hypertension. Still has the pain. Does not seem to be worse with movement. Does not recall any heavy lifting other than cutting grass. Never had stress test in the past. Evaluation in the ER showed negative EKG and troponins. CXR ok. Na 126 on labs. She was admitted for further evaluation. Review of Systems Complete review of systems performed pertinent positives per HPI otherwise negative. Past Medical History Past Medical History: Hypertension History of Any Multi-Drug Resistant Organisms: None Reported Past Surgical History: Breast Surgery, Tubal Ligation Additional Past Surgical History / Comment(s): breast biopsy, excision vulva lesion Past Anesthesia/Blood Transfusion Reactions: No Reported Reaction Past Psychological History: No Psychological Hx Reported Past Alcohol Use History: Occasional Past Drug Use History: None Reported - Past Family History Mother Family Medical History: No Reported History Medications and Allergies Home Medications Medication Instructions Recorded Confirmed Type Alendronate Sodium [Fosamax] 70 mg PO GERBER 04/13/14 05/15/24 History Multivit with Calcium,Iron,Min 1 tab PO DAILY 04/13/14 05/15/24 History [Women's Daily Multivitamin] atenoloL [Tenormin] 50 mg PO DAILY@1100 04/13/14 05/15/24 History Ferrous Sulfate [Feosol] 325 mg PO GERBER 02/20/17 05/15/24 History Biotin(Unknown Dose) 1 tab PO DAILY 05/15/24 05/15/24 History Calcium Carbonate [Calcium] 600 mg PO MOWEFR 05/15/24 05/15/24 History Fish Oil(Unknown Dose) 1 cap PO TUTH 05/15/24 05/15/24 History Losartan Potassium 100 mg PO DAILY 05/15/24 05/15/24 History amLODIPine [Norvasc] 5 mg PO HS 05/15/24 05/15/24 History Allergies Allergy/AdvReac Type Severity Reaction Status Date / Time lisinopril Allergy Anaphylaxis/Facial Verified 05/15/24 16:18 Swelling/Lip Swelling Physical Exam Vitals: Vital Signs Temp Pulse Pulse Resp BP Pulse Ox 05/15/24 16:16 62 05/15/24 14:18 98 F 55 L 16 155/83 99 Intake and Output 05/15/24 05/15/24 05/15/24 06:59 14:59 22:59 Other: Weight 49.895 kg Constitutional: No acute distress, conversant, pleasant Eyes:Anicteric sclerae, moist conjunctiva, no lid-lag, PERRLA, ENMT: Oropharynx clear, no erythema, exudates Neck: Supple, FROM, no masses, or JVD, No carotid bruits, No thyromegaly Lungs: Clear to auscultation, Clear to percussion, Normal respiratory effort, no accessory muscle use Cardiovascular: Heart regular in rate and rhythm, No murmurs, gallops, or rubs, No peripheral edema Abdominal: Soft, Nontender, no guarding, rebound or rigidity, Normoactive bowel sounds, No hepatomegaly, No splenomegaly, No palpable mass Skin: Normal temperature, tone, texture, turgor, no induration, No subcutaneous nodules, No rash, lesions, No ulcers Extremities: No digital cyanosis, No clubbing, Pedal pulses intact and symmetri winsome, Radial pulses intact and symmetrical, No calf tenderness Psychiatric: Alert and oriented to person, place and time, appropriate affect, intact judgement Neuro: Muscles Strength 5/5 in all 4 extremities, Sensation to light touch grossly present throughout, Cranial nerves II-XII grossly intact, no focal sensory deficits Results CBC & Chem 7: 05/15/24 14:02 05/15/24 14:02 Labs: Abnormal Lab Results - Last 24 Hours (Table) 05/15/24 05/15/24 Range/Units 14:02 14:02 RBC 3.46 L (3.80-5.40) m/uL Hgb 11.3 L (11.4-16.0) gm/dL Hct 32.2 L (34.0-46.0) % Lymphocytes # 0.8 L (1.0-4.8) k/uL Sodium 126 L (137-145) mmol/L Chloride 91 L (98-107) mmol/L BUN 19 H (7-17) mg/dL Glucose 116 H (74-99) mg/dL Assessment and Plan Plan: Acute chest pain R/o cardiac Tele Stress in am. Echo Cardiology consult Hyponatremia She is a daily beer drinker, could be beer potomania IV fluids Check plasma osmolality, urine Na and osmolality. HTN Stable continue meds Admit to inpatient expected length of stay more than 2 midnights.
[2024-05-15] MEDS ORDERED: ACETAMINOPHEN TAB 325 MG TAB PO PRN (17:43)
[2024-05-15] MEDS: SODIUM CHLORIDE 0.9% 1,000 ML IV SCH (20:23)
[2024-05-15] MEDS: amLODIPine 5 MG TAB PO SCH (21:53)
[2024-05-16] MEDS: LOSARTAN 50 MG TAB PO SCH (08:16)
[2024-05-16] MEDS: PANTOPRAZOLE 40 MG/10 ML VIAL IV SCH (08:16)
[2024-05-16 09:42] LABS: Basophils # (A) 0.02 X 10*3/uL (0.00-0.10); Basophils % (A) 0.5 %; Eosinophils # (A) 0.07 X 10*3/uL (0.04-0.35); Eosinophils % (A) 1.6 %; HCT 33.7 % (37.2-46.3); HGB 11.1 g/dL (12.0-15.0); Lymphocytes # (A) 0.68 X 10*3/uL (0.90-5.00); Lymphocytes % (A) 15.3 %; MCH 30.9 pg (27.0-32.0); MCHC 32.9 g/dL (32.0-37.0); MCV 93.9 FL (80.0-97.0); Monocytes # (A) 0.48 X 10*3/uL (0.20-1.00); Monocytes % (A) 10.8 %; NRBC Per 100 WBC 0 X 10*3/uL (0.00-0.01); Neutrophils # (A) 3.17 X 10*3/uL (1.80-7.70); Neutrophils % (A) 71.3 %; Platelet Count 199 X 10*3/uL (140-440); RBC 3.59 X 10*6/uL (4.10-5.20); RDW 13.1 % (11.5-14.5); WBC 4.44 X 10*3/uL (4.50-10.00)
[2024-05-16 10:41] LABS: ALT 21 U/L (8-44); AST 21 U/L (13-35); Albumin 4.3 g/dL (3.8-4.9); Albumin/Globulin Ratio 2.69 Ratio (1.60-3.17); Alkaline Phosphatase 45 U/L (41-126); BUN/Creat Ratio 13.67 Ratio (12.00-20.00); Blood Urea Nitrogen 12.3 mg/dL (9.0-27.0); Calcium 9.6 mg/dL (8.7-10.3); Carbon Dioxide 24.4 mmol/L (21.6-31.8); Chloride 104 mmol/L (96-109); Globulin 1.6 g/dL (1.6-3.3); Glucose 84 mg/dL (70-110); Magnesium 1.7 mg/dL (1.5-2.4); Phosphorus 3.3 mg/dL (2.4-5.1); Potassium 4.5 mmol/L (3.5-5.5); Sodium 137 mmol/L (135-145); Total Bilirubin 0.3 mg/dL (0.3-1.2); Total Protein 5.9 g/dL (6.2-8.2)
[2024-05-16] MEDS ORDERED: atenoloL 50 MG TAB PO SCH (11:00)
[2024-05-16 13:03] VITALS: BP 154/89; PULSE 56; RESP 15; TEMP 97.6
--- NOTE | 2024-05-16 15:33 | P.PN ---
Subjective Progress Note Date: 05/16/24 Principal diagnosis: chest pain Chest pain has resolved. No sob. Feeling well today. Objective - Vital Signs Vital signs: Vital Signs Temp 97.6 F 05/16/24 13:02 Pulse 56 L 05/16/24 13:41 Resp 15 05/16/24 13:41 BP 154/89 05/16/24 13:02 Pulse Ox 100 05/16/24 13:02 FiO2 Intake & Output 05/15/24 05/16/24 05/16/24 18:59 06:59 18:59 Weight 49.895 kg 49.895 kg Other: Voiding Method Toilet # Voids 1 - Exam Constitutional: No acute distress, conversant, pleasant Eyes:Anicteric sclerae, moist conjunctiva, no lid-lag, PERRLA, ENMT: Oropharynx clear, no erythema, exudates Neck: Supple, FROM, no masses, or JVD, No carotid bruits, No thyromegaly Lungs: Clear to auscultation, Clear to percussion, Normal respiratory effort, no accessory muscle use Cardiovascular: Heart regular in rate and rhythm, No murmurs, gallops, or rubs, No peripheral edema Abdominal: Soft, Nontender, no guarding, rebound or rigidity, Normoactive bowel sounds, No hepatomegaly, No splenomegaly, No palpable mass Skin: Normal temperature, tone, texture, turgor, no induration, No subcutaneous nodules, No rash, lesions, No ulcers Extremities: No digital cyanosis, No clubbing, Pedal pulses intact and symmetrical, Radial pulses intact and symmetrical, No calf tenderness Psychiatric: Alert and oriented to person, place and time, appropriate affect, intact judgement Neuro: Muscles Strength 5/5 in all 4 extremities, Sensation to light touch g rossly present throughout, Cranial nerves II-XII grossly intact, no focal sensory deficits - Labs CBC & Chem 7: 05/16/24 04:38 05/16/24 04:38 Labs: Abnormal Lab Results - Last 24 Hours (Table) 05/16/24 05/16/24 Range/Units 04:38 04:38 WBC 4.44 L (4.50-10.00) X 10*3/uL RBC 3.59 L (4.10-5.20) X 10*6/uL Hgb 11.1 L (12.0-15.0) g/dL Hct 33.7 L (37.2-46.3) % Lymphocytes # 0.68 L (0.90-5.00) X 10*3/uL Total Protein 5.9 L (6.2-8.2) g/dL Assessment and Plan Plan: Acute chest pain AMI ruled out Tele Stress test Echo Cardiology consult Hyponatremia Resolved, likely dehydration She is a daily beer drinker, could be beer potomania IV fluids Check plasma osmolality, urine Na and osmolality. HTN Stable continue meds
--- NOTE | 2024-05-16 15:50 | P.CRDCN ---
History of Present Illness Consult date: 05/16/24 History of present illness: The patient is a pleasant 63-year-old female patient with a past medical history significant for hypertension with no other cardiovascular disease presented to the hospital complaining of chest discomfort. She has been experiencing intermittent episodes of chest discomfort mainly on the left side of the chest described as "poking in the chest" last for few seconds only and appeared to be nonexertional related. No radiation to the arms or neck or shoulders or back and no associated symptoms of shortness of breath or sweating or dizziness or lightheadedness or any feeling of heart racing or fluttering or presyncope or syncope or edema in the lower extremities. She underwent further evaluation including an EKG and that showed sinus mechanism with no significant ST or T wave abnormalities and also cardiac enzymes came in to be unremarkable. No history of coronary artery disease or congestive heart failure or cardiac arrhythmia. The chest x-ray did not show any acute abnormalities. The patient expressed her wishes to go home. I advised the patient that she needs undergo a stress test to rule out severe CAD and she was given the option of staying till Saturday to have the test as an outpatient but she would like to go home and have it done as an outpatient. Am going to follow-up with her echocardiogram and if the echo is unremarkable and she remains asymptomatic getting her up and over she potentially can be discharged home. The physical examination is remarkable for regular rhythm with a soft systolic murmur and clear breathing sounds bilaterally and no edema was noted in the lower extremities Assessment Atypical versus noncardiac chest discomfort Hypertension Plan Acute coronary event was ruled out with normal troponin The patient potentially can be discharged home and have a stress test as an outpatient Past Medical History Past Medical History: Hypertension Additional Past Medical History / Comment(s): cervical ca with surgical clips fo r removal. History of Any Multi-Drug Resistant Organisms: None Reported Past Surgical History: Breast Surgery, Tubal Ligation Additional Past Surgical History / Comment(s): breast biopsy, excision vulva lesion Past Anesthesia/Blood Transfusion Reactions: No Reported Reaction Past Psychological History: No Psychological Hx Reported Smoking Status: Former smoker Past Alcohol Use History: Occasional Additional Past Alcohol Use History / Comment(s): 3/4ppd for 30 yrs. Past Drug Use History: None Reported - Past Family History Mother Family Medical History: No Reported History Medications and Allergies Home Medications Medication Instructions Recorded Confirmed Type Alendronate Sodium [Fosamax] 70 mg PO GERBER 04/13/14 05/15/24 History Multivit with Calcium,Iron,Min 1 tab PO DAILY 04/13/14 05/15/24 History [Women's Daily Multivitamin] atenoloL [Tenormin] 50 mg PO DAILY@1100 04/13/14 05/15/24 History Ferrous Sulfate [Feosol] 325 mg PO GERBER 02/20/17 05/15/24 History Biotin(Unknown Dose) 1 tab PO DAILY 05/15/24 05/15/24 History Calcium Carbonate [Calcium] 600 mg PO MOWEFR 05/15/24 05/15/24 History Fish Oil(Unknown Dose) 1 cap PO TUTH 05/15/24 05/15/24 History Losartan Potassium 100 mg PO DAILY 05/15/24 05/15/24 History amLODIPine [Norvasc] 5 mg PO HS 05/15/24 05/15/24 History Allergies Allergy/AdvReac Type Severity Reaction Status Date / Time lisinopril Allergy Anaphylaxis/Facial Verified 05/15/24 16:18 Swelling/Lip Swelling Physical Exam Vitals: Vital Signs Temp Pulse Pulse Resp BP BP Pulse Ox 05/16/24 13:41 56 L 15 05/16/24 13:02 97.6 F 56 L 15 154/89 100 05/16/24 12:00 57 L 100 05/16/24 11:49 128/94 98 05/16/24 09:00 67 16 140/89 99 05/16/24 08:00 98 F 62 16 131/90 99 05/16/24 06:19 65 18 131/97 99 05/16/24 03:30 47 L 16 150/84 98 05/16/24 01:04 53 L 05/16/24 01:00 53 L 16 150/95 98 05/15/24 22:52 65 18 154/93 98 05/15/24 19:32 56 L 18 149/108 99 05/15/24 16:16 62 Intake and Output 05/16/24 05/16/24 05/16/24 06:59 14:59 22:59 Intake Total 118 Balance 118 Intake: Oral 118 Other: Voiding Method Toilet # Voids 1 Weight 49.895 kg Results 05/16/24 04:38 05/16/24 04:38 Cardiac Enzymes 05/15/24 05/15/24 05/16/24 Range/Units 17:53 21:16 04:38 AST 21 (13-35) U/L Troponin I <0.012 <0.012 (0.000-0.034) ng/mL CBC 05/16/24 Range/Units 04:38 WBC 4.44 L (4.50-10.00) X 10*3/uL RBC 3.59 L (4.10-5.20) X 10*6/uL Hgb 11.1 L (12.0-15.0) g/dL Hct 33.7 L (37.2-46.3) % Plt Count 199 (140-440) X 10*3/uL Comprehensive Metabolic Panel 05/16/24 Range/Units 04:38 Sodium 137 (135-145) mmol/L Potassium 4.5 (3.5-5.5) mmol/L Chloride 104 (96-109) mmol/L Carbon Dioxide 24.4 (21.6-31.8) mmol/L BUN 12.3 (9.0-27.0) mg/dL Creatinine 0.9 (0.6-1.5) mg/dL Glucose 84 (70-110) mg/dL Calcium 9.6 (8.7-10.3) mg/dL AST 21 (13-35) U/L ALT 21 (8-44) U/L Alkaline Phosphatase 45 (41-126) U/L Total Protein 5.9 L (6.2-8.2) g/dL Albumin 4.3 (3.8-4.9) g/dL Current Medications Generic Name Dose Route Start Last Admin Trade Name Freq PRN Reason Stop Dose Admin Acetaminophen 650 mg 05/15/24 17:43 Acetaminophen Tab 325 Mg Tab PO Q6HR PRN Mild Pain or Fever > 100.5 Amlodipine Besylate 5 mg 05/15/24 21:00 05/15/24 21:53 Amlodipine 5 Mg Tab PO 5 mg HS FRANCISCA Administration Ferrous Sulfate 325 mg 05/17/24 09:00 Ferrous Sulfate 325 Mg Tab PO GERBER FRANCISCA Sodium Chloride 1,000 mls @ 75 mls/hr 05/15/24 16:45 05/16/24 06:19 Saline 0.9% IV 75 mls/hr .[id number] FRANCISCA Administration Losartan Potassium 100 mg 05/16/24 09:00 05/16/24 08:16 Losartan 50 Mg Tab PO 100 mg DAILY FRANCISCA Administration Morphine Sulfate 4 mg 05/15/24 16:36 Morphine Sulfate 4 Mg/Ml Syringe IV Q4HR PRN Severe Pain (Scale 7 to 10) Naloxone HCl 0.2 mg 05/15/24 16:36 Naloxone 0.4 Mg/Ml 1 Ml Vial IV Q2M PRN Opioid Reversal Naloxone HCl 0.2 mg 05/15/24 17:43 Naloxone 0.4 Mg/Ml 1 Ml Vial IV Q2M PRN Opioid Reversal Ondansetron HCl 4 mg 05/15/24 16:36 Ondansetron 4 Mg/2 Ml Vial IVP Q8HR PRN Nausea And Vomiting Pantoprazole Sodium 40 mg 05/16/24 09:00 05/16/24 08:16 Pantoprazole 40 Mg/10 Ml Vial IV 40 mg DAILY FRANCISCA Administration Intake and Output 05/16/24 05/16/24 05/16/24 06:59 14:59 22:59 Intake Total 118 Balance 118 Intake: Oral 118 Other: Voiding Method Toilet # Voids 1 Weight 49.895 kg Patient Weight 05/17/24 06:59 Weight 49.895 kg 05/16/24 04:38 05/16/24 04:38
--- NOTE | 2024-05-16 16:07 | P.DS ---
Providers Date of admission: 05/15/24 16:36 Expected date of discharge: 05/16/24 Attending physician: Wang Kessler MD Consults: 05/15/24 16:36 Consult Physician Routine Consulting Provider: Pennie Isaac Consult Reason/Comments: cp Do you want consulting provider notified?: Yes Primary care physician: [facility] Course: 63-year-old female presents to the emergency department with chest pain, which started since waking up today. States it is left-sided. No radiation. Feels like ''annoying'' and ''pokes'', better with laying down. 7/10 in intensity. No shortness of breath. No nausea or vomiting. No diaphoresis. No cardiac history. Does have a history of hypertension. Still has the pain. Does not seem to be worse with movement. Does not recall any heavy lifting other than cutting grass. Never had stress test in the past. Evaluation in the ER showed negative EKG and troponins. CXR ok. Na 126 on labs. She was admitted for further evaluation. She was admitted, trops were cycled. Remained negative. ACS ruled out. Had an echo done, reading pedning. She was seen by cardio and was cleared for discharge, outpatient stress test to be scheduled. Na improved with hydration, she was told to hydrate enough and to quit beer drinking. Chest pain resolved. She will be discharged in a stable condition. Time for discharge 36 min She was seen and examined on the day of discharge 05/16 Patient Condition at Discharge: Fair Plan - Discharge Summary Discharge Rx Participant: No New Discharge Prescriptions: Continue atenoloL [Tenormin] 50 mg PO DAILY@1100 Multivit with Calcium,Iron,Min [Women's Daily Multivitamin] 1 tab PO DAILY Alendronate Sodium [Fosamax] 70 mg PO GERBER Ferrous Sulfate [Iron (65 MG Elemental)] 325 mg PO GERBER Biotin(Unknown Dose) 1 tab PO DAILY Fish Oil(Unknown Dose) 1 cap PO TUTH Losartan Potassium 100 mg PO DAILY amLODIPine [Norvasc] 5 mg PO HS Calcium Carbonate [Calcium] 600 mg PO MOWEFR Discharge Medication List Alendronate Sodium [Fosamax] 70 mg PO GERBER 04/13/14 [History] Multivit with Calcium,Iron,Min [Women's Daily Multivitamin] 1 tab PO DAILY 04/13/14 [History] atenoloL [Tenormin] 50 mg PO DAILY@1100 04/13/14 [History] Ferrous Sulfate [Iron (65 MG Elemental)] 325 mg PO GERBER 02/20/17 [History] Biotin(Unknown Dose) 1 tab PO DAILY 05/15/24 [History] Calcium Carbonate [Calcium] 600 mg PO MOWEFR 05/15/24 [History] Fish Oil(Unknown Dose) 1 cap PO TUTH 05/15/24 [History] Losartan Potassium 100 mg PO DAILY 05/15/24 [History] amLODIPine [Norvasc] 5 mg PO HS 05/15/24 [History] Follow up Appointment(s)/Referral(s): Liborio Smith MD [Primary Care Provider] - 1-2 days Patient Instructions/Handouts: Chest Pain (ED)
--- NOTE | 2024-05-16 16:09 | CA ---
Transthoracic Echo Report Name: Lo Paul Age: 63 Gender: F : 1960 Exam Date: 05/16/2024 09:50 Exam Location: [facility] Ht (in): 66 Wt (lb): 110 Ordering Physician: Miguelina Meier MD Attending/Referring Phys: [id number], Renea Glass Worker Aline Kapoor RDCS Procedure CPT: Indications: Chest Pain Cardiac Hx: Technical Quality: Good Contrast 1: Total Dose (mL): Contrast 2: Total Dose (mL): MEASUREMENTS (Male / Female) Normal Values 2D ECHO LV Diastolic Diameter PLAX 4.6 cm 4.2 - 5.9 / 3.9 - 5.3 cm LV Systolic Diameter PLAX 2.9 cm IVS Diastolic Thickness 1.0 cm 0.6 - 1.0 / 0.6 - 0.9 cm LVPW Diastolic Thickness 1.0 cm 0.6 - 1.0 / 0.6 - 0.9 cm LV Relative Wall Thickness 0.4 RV Internal Dim ED PLAX 2.0 cm LA Systolic Diameter LX 3.3 cm 3.0 - 4.0 / 2.7 - 3.8 cm LV Diastolic Volume MOD BP 60.1 cm??? 67 - 155 / 56 - 104 cm??? LV Systolic Volume MOD BP 20.3 cm??? 22 - 58 / 19 - 49 cm??? LV Ejection Fraction MOD BP 66.2 % >= 55 % LV Cardiac Index MOD BP 1418.4 cm???/min???m??? LV Diastolic Volume MOD 4C 63.5 cm??? LV Systolic Volume MOD 4C 19.7 cm??? LV Ejection Fraction MOD 4C 69.0 % LV Cardiac Index MOD 4C 1562.0 cm???/min???m??? LV Diastolic Length 4C 6.8 cm LV Systolic Length 4C 5.5 cm LV Diastolic Volume MOD 2C 53.8 cm??? LV Systolic Volume MOD 2C 20.5 cm??? LV Ejection Fraction MOD 2C 61.8 % LV Cardiac Index MOD 2C 1186.1 cm???/min???m??? LV Diastolic Length 2C 6.3 cm LV Systolic Length 2C 5.3 cm LA Volume 51.5 cm??? 18 - 58 / 22 - 52 cm??? LA Volume Index 34.0 cm???/m??? 16 - 28 cm???/m??? M-MODE Aortic Root Diameter MM 2.4 cm LA Systolic Diameter MM 3.9 cm LA Ao Ratio MM 1.6 DOPPLER AV Peak Velocity 161.8 cm/s AV Peak Gradient 10.5 mmHg MV Area PHT 2.1 cm??? Mitral E Point Velocity 97.7 cm/s Mitral A Point Velocity 64.1 cm/s Mitral E to A Ratio 1.5 MV Deceleration Time 366.9 ms TR Peak Velocity 242.7 cm/s TR Peak Gradient 23.6 mmHg Right Ventricular Systolic Press 28.0 mmHg FINDINGS Left Ventricle Left ventricular ejection fraction is estimated at 60-65 %. Mildly increased posterior wall thickness. Left ventricular cavity size normal. No obvious regional wall motion abnormalities. Right Ventricle Mild right ventricular dilatation. Right ventricular systolic pressure within normal limits. Right Atrium Moderate right atrial dilatation. Left Atrium Moderately increased left atrial volume. Mitral Valve Structurally normal mitral valve. Mild mitral regurgitation. No mitral stenosis. Aortic Valve Trileaflet aortic valve. No aortic valve stenosis or regurgitation. Tricuspid Valve Structurally normal tricuspid valve. Mild tricuspid regurgitation. No tricuspid stenosis. Pulmonic Valve Structurally normal pulmonic valve. Trace pulmonic regurgitation. No pulmonic stenosis. Pericardium No pericardial or pleural effusion. Aorta Normal size aortic root and proximal ascending aorta. CONCLUSIONS Normal biventricular systolic function Mild RV enlargement No significant valvular abnormality Previewed by: Dr. Sander Carrera MD (Electronically Signed) Final Date: 16 May 2024 16:08
[2024-05-17] MEDS ORDERED: FERROUS SULFATE 325 MG TAB PO SCH (09:00)
== END 2024-05-16 16:46 | disposition home or self-care (01) ==
LOC: EC 13:34 → 6NMEDSUR 16:36 → UNDODISOB 05-16 16:46
PROVIDERS: ADMIT Internal Medicine; ATTEND Internal Medicine
DX: R07.89 Other chest pain (principal); I10 Essential (primary) hypertension; E87.1 Hypo-osmolality and hyponatremia; Z85.41 Personal history of malignant neoplasm of cervix uteri; Z87.891 Personal history of nicotine dependence; Z79.83 Long term (current) use of bisphosphonates; Z79.899 Other long term (current) drug therapy
CPT/HCPCS: 36415; 71046; 80053; 83690; 83735; 83880; 83930; 83935; 84100; 84300; 84484; 85025; 85610; 85730; 93005; 93306; 96361; 96374; 99285

== ENCOUNTER 2024-10-29 13:59 | Emergency (ER) | payer OTHER ==
[2024-10-29 14:04] VITALS: RESP 18
--- NOTE | 2024-10-29 14:09 | ED ---
URI HPI - General Chief Complaint: Upper Respiratory Infection Stated Complaint: Abdominal Pain Time Seen by Provider: 10/29/24 14:09 Source: patient, RN notes reviewed Mode of arrival: ambulatory Limitations: no limitations - History of Present Illness Initial Comments: 64-year-old female presented to the ER for evaluation of feeling unwell. Patient states that Saturday she has been having a headache, generalized abdominal pain, hot flashes, chills and myalgias. Patient states she has been in bed and feeling very weak to do ADLs. Patient was seen at urgent care on Saturday and diagnosed with influenza A and bronchitis. Patient was started on doxycycline. Patient reports mild improvement since seen at urgent care. She states she still feels weak. She denies any dizziness, lightheadedness, fevers, chest pain, shortness of breath, diarrhea/constipation, urinary complaints or peripheral edema. - Related Data Home Medications Medication Instructions Recorded Confirmed Alendronate Sodium [Fosamax] 70 mg PO GERBER 04/13/14 05/15/24 Multivit with Calcium,Iron,Min 1 tab PO DAILY 04/13/14 05/15/24 [Women's Daily Multivitamin] atenoloL [Tenormin] 50 mg PO DAILY@1100 04/13/14 05/15/24 Ferrous Sulfate [Iron (65 MG 325 mg PO GERBER 02/20/17 05/15/24 Elemental)] Biotin(Unknown Dose) 1 tab PO DAILY 05/15/24 05/15/24 Calcium Carbonate [Calcium] 600 mg PO MOWEFR 05/15/24 05/15/24 Fish Oil(Unknown Dose) 1 cap PO TUTH 05/15/24 05/15/24 Losartan Potassium 100 mg PO DAILY 05/15/24 05/15/24 amLODIPine [Norvasc] 5 mg PO HS 05/15/24 05/15/24 Allergies Allergy/AdvReac Type Severity Reaction Status Date / Time lisinopril Allergy Anaphylaxis/Facial Verified 10/29/24 14:03 Swelling/Lip Swelling Review of Systems ROS Statement: Those systems with pertinent positive or pertinent negative responses have been documented in the HPI. ROS Other: All systems not noted in ROS Statement are negative. Past Medical History Past Medical History: Hypertension Additional Past Medical History / Comment(s): cervical ca with surgical clips for removal. History of Any Multi-Drug Resistant Organisms: None Reported Past Surgical History: Breast Surgery, Tubal Ligation Additional Past Surgical History / Comment(s): breast biopsy, excision vulva lesion Past Anesthesia/Blood Transfusion Reactions: No Reported Reaction Past Psychological History: No Psychological Hx Reported Smoking Status: Former smoker Past Alcohol Use History: Occasional Past Drug Use History: None Reported - Past Family History Mother Family Medical History: No Reported History General Exam - General Exam Comments Initial Comments: Visual Physical Exam Vital signs reviewed General: Well-appearing, nontoxic, no acute distress. Head: Normocephalic, atraumatic Eyes: PERRLA, EOMI ENT: Airway patent Chest: Nonlabored breathing Skin: No visual rash, normal skin tone Neuro: Alert and oriented 3 Musculoskeletal: No gross abnormalities Limitations: no limitations General appearance: alert, in no apparent distress ENT exam: Present: normal exam, normal oropharynx, mucous membranes moist, TM's normal bilaterally Neck exam: Present: normal inspection. Absent: tenderness, meningismus, lymphadenopathy Respiratory exam: Present: normal lung sounds bilaterally. Absent: respiratory distress, wheezes, rales, rhonchi, stridor Cardiovascular Exam: Present: regular rate, normal rhythm, normal heart sounds. Absent: systolic murmur, diastolic murmur, rubs, gallop, clicks GI/Abdominal exam: Present: soft, normal bowel sounds. Absent: distended, tenderness, guarding, rebound, rigid Extremities exam: Present: normal inspection, full ROM, normal capillary refill. Absent: tenderness, pedal edema, joint swelling, calf tenderness Neurological exam: Present: alert, oriented X3, CN II-XII intact Skin exam: Present: warm, dry, intact, normal color. Absent: rash Course Vital Signs 10/29/24 10/29/24 14:02 16:02 Temperature 97.4 F L 98.0 F Pulse Rate 60 68 Respiratory 18 18 Rate Blood Pressure 118/73 118/70 O2 Sat by Pulse 97 98 Oximetry Medical Decision Making - Medical Decision Making I performed the quick note portion of this chart. Electronically signed by Beverly Quezada PA-C Was pt. sent in by a medical professional or institution ([facility], CHECK OUT CASHIER, urgent care, hospital, or fdc...) When possible be specific @ -No Did you speak to anyone other than the patient for history (EMS, parent, family, police, friend...)? What history was obtained from this source @ -No Did you review nursing and triage notes (agree or disagree)? Why? @ -I reviewed and agree with nursing and triage notes Were old charts reviewed (outside hosp., previous admission, EMS record, old EKG, old radiological studies, urgent care reports/EKG's, fdc records)? Report findings @ -No old charts were reviewed Differential Diagnosis (chest pain, altered mental status, abdominal pain women, abdominal pain men, vaginal bleeding, weakness, fever, dyspnea, syncope, headache, dizziness, GI bleed, back pain, seizure, CVA, palpatations, mental health, musculoskeletal)? @ -COVID, RSV, influenza, viral sinusitis, pneumonia, strep pharyngitis, this list is not meant to be all-inclusive EKG interpreted by me (3pts min.). @ -None done X-rays interpreted by me (1pt min.). @ -CXR interpreted by me negative for focal consolidations. CT interpreted by me (1pt min.). @ -None done U/S interpreted by me (1pt. min.). @ -None done What testing was considered but not performed or refused? (CT, X-rays, U/S, labs)? Why? @ -None What meds were considered but not given or refused? Why? @ -None Did you discuss the management of the patient with other professionals (professionals i.e. , PA, CHECK OUT CASHIER, lab, RT, psych nurse, home health care social worker, treasury associate, teacher, protective services officer, watch caser)? Give summary @ -No Was smoking cessation discussed for >3mins.? @ -No Was critical care preformed (if so, how long)? @ -No Were there social determinants of health that impacted care today? How? (Homelessness, low income, unemployed, alcoholism, drug addiction, hull sportation, low edu. Level, literacy, decrease access to med. care, usp, rehab)? @ -No Was there de-escalation of care discussed even if they declined (Discuss DNR or withdrawal of care, Hospice)? DNR status @ -No What co-morbidities impacted this encounter? (DM, HTN, Smoking, COPD, CAD, Cancer, CVA, ARF, Chemo, Hep., AIDS, mental health diagnosis, sleep apnea, morbid obesity)? @ -None Was patient admitted / discharged? Hospital course, mention meds given and route, prescriptions, significant lab abnormalities, going to OR and other pertinent info. @ -Discharge. 64-year-old female presented to the ER for evaluation of feeling unwell. Patient states she was recently diagnosed with influenza A and started on doxycycline. Patient is well-appearing in no signs of acute distress. Vitals within acceptable limits. Viral swabs negative for influenza A, influenza B, RSV and COVID. Chest x-ray with no signs of pneumonia. Symptoms believed to be residual from recent influenza infection. I advised her to continue taking [id number] ibuprofen and Tylenol for fever and symptom control outpatient. Patient is tolerating oral intake. Patient is stable for discharge. Strict return parameters discussed. Patient discharged stable condition with follow-up with PCP. Patient expressed understanding agree with care plan. Case discussed with ED attending, Dr. Souza. Undiagnosed new problem with uncertain prognosis? @ -No Drug Therapy requiring intensive monitoring for toxicity (Heparin, Nitro, Insulin, Cardizem)? @ -No Were any procedures done? @ -No Diagnosis/symptom? @ -Acute viral sinusitis Acute, or Chronic, or Acute on Chronic? @ -Acute Uncomplicated (without systemic symptoms) or Complicated (systemic symptoms)? @ -Uncomplicated Side effects of treatment? @ -No Exacerbation, Progression, or Severe Exacerbation? @ -No Poses a threat to life or bodily function? How? (Chest pain, [place], ME, pneumonia, PE, COPD, DKA, ARF, appy, cholecystitis, CVA, Diverticulitis, Homicidal, Suicidal, threat to staff... and all critical care pts) @ -No - Lab Data Lab Results 10/29/24 Range/Units 14:05 Influenza Type A (PCR) Not Detected (Not Detectd) Influenza Type B (PCR) Not Detected (Not Detectd) RSV (PCR) Not Detected (Not Detectd) SARS-CoV-2 (PCR) Not Detected (Not Detectd) - Radiology Data Radiology results: report reviewed, image reviewed Disposition Clinical Impression: Acute viral sinusitis Disposition: HOME SELF-CARE Condition: Stable Additional Instructions: Continue alternating [id number] ibuprofen and Tylenol for symptom control. Follow-up with PCP. Return to the ER for any new or worsening concerns. Is patient prescribed a controlled substance at d/c from ED?: No Referrals: Liborio Smith MD [Primary Care Provider] - 1-2 days Time of Disposition: 15:49
--- NOTE | 2024-10-29 14:30 | XR ---
EXAMINATION TYPE: XR chest 2V DATE OF EXAM: 10/29/2024 2:25 PM COMPARISON: Chest x-ray May 15, 2024 CLINICAL INDICATION: Female, 64 years old with history of cough, congestion, TECHNIQUE: Frontal and lateral views of the chest are obtained. FINDINGS: There is no focal air space opacity, pleural effusion, or pneumothorax seen. The cardiac silhouette size is within normal limits. The osseous structures are intact. IMPRESSION: No acute pulmonary process. [facility], , 10/29/2024 2:28 PM
[2024-10-29 15:01] LABS: Influenza A Not Detected (Not Detectd); Influenza B Not Detected (Not Detectd); RSV Not Detected (Not Detectd)
[2024-10-29 16:03] VITALS: BP 118/70; PULSE 68; TEMP 98
== END 2024-10-29 16:03 | disposition home or self-care (01) ==
LOC: EC 13:59
DX: J01.90 Acute sinusitis, unspecified (principal); Z87.891 Personal history of nicotine dependence
CPT/HCPCS: 71046; 87636; 99284